=== PATIENT | female | born 1995 | race Caucasian/White ===

== ENCOUNTER 2019-05-11 16:35 | Emergency (ER) | payer SELFPAY ==
[2019-05-11 16:39] VITALS: BP 113/71; PULSE 95; RESP 20; TEMP 37.3; O2SAT 100
--- NOTE | 2019-05-11 16:56 | ED.URI ---
HPI - URI/Sore Throat General Chief Complaint: Upper Respiratory Infection Stated Complaint: SORE THROAT Time Seen by Provider: 05/11/19 16:56 Source: patient and RN notes reviewed Mode of arrival: ambulatory Limitations: no limitations History of Present Illness HPI Narrative: 23-year-old female presents with concern for 3-day history of sore throat, body aches, sinus congestion, drainage. Reports trying multiple [id number] medications with no relief. MD elicited complaint: sore throat Related Data Home Medications Medication Instructions Recorded Confirmed dextroamphetamine-amphetamine 20 mg PO BID 05/11/19 05/11/19 [Adderall XR] ibuprofen 200 mg PO Q6H PRN 05/11/19 05/11/19 pseudoephedrine HCl [Sudafed 12 mg PO 05/11/19 Hour] Allergies Allergy/AdvReac Type Severity Reaction Status Date / Time No Known Allergies Allergy Verified 05/11/19 16:47 Review of Systems Review of Systems: Narrative: CONSTITUTIONAL: Denies malaise, chills, sweats, or fever. EYES: Denies visual changes, redness, or discharge. ENT: Reports rhinorrhea, congestion, sinus pain, otalgia and sore throat. CARDIOVASCULAR: Denies chest pain, palpitations, or edema. RESPIRATORY: Reports cough. Denies dyspnea. GASTROINTESTINAL: Denies abdominal pain, nausea, vomiting, diarrhea SKIN: Denies rash or itching. MUSCULOSKELETAL: Denies myalgia. NEUROLOGIC: Denies headache. All systems reviewed & are unremarkable except as noted in HPI and below PMFSH Past Medical History Medical History (Updated 05/11/19 @ 17:11 by Enid Harrington NP) ADD (attention deficit disorder) HPV (human papilloma virus) infection Migraines Surgical History Surgical History (Updated 04/16/19 @ 21:38 by Antoni Ortega) H/O dilation and curettage History of removal of skin mole Social History Social History (Updated 04/16/19 @ 21:38 by Antoni Ortega) Smoking status: Never smoker Comments At time of signature, agree with nursing past medical, surgical, social and family history. There is no relevant family history pertinent to the presenting complaint Exam Narrative: Exam Narrative: GENERAL: Well-appearing, well-nourished, and in no acute distress. HEAD: Normocephalic, atraumatic. EYES: PERRLA, conjunctivae clear, and EOMI. ENT: Nares clear, turbinates edematous and erythematous, clear discharge. Mucous membranes moist. TM pearly jones with dull light reflex bilaterally; no tragal tenderness. Oropharynx erythematous without lesions. Tonsils not enlarged and without exudate, no drooling, no hoarseness, no trismus. NECK: Supple. No lymphadenopathy CHEST: Clear to auscultation, breath sounds equal. No wheezing, rhonchi, rales, or stridor. No respiratory distress, speaks in full sentences. HEART: Regular rate and rhythm. No murmur heard. Normal peripheral pulses. SKIN: Warm, dry, no rash. NEURO: Alert and oriented x3. PSYCH: Normal mood and affect Course Course Emergency Course: Patient is aware of diagnosis, understands and agrees to treatment plan. Anticipatory guidance given. Patient agrees to follow-up as directed and is aware of reasons to seek care at the emergency department. Portions of this record may have been created with voice recognition software Vital Signs Vital signs: Vital Signs Temperature 99.1 F 05/11/19 16:39 Pulse Rate 95 05/11/19 16:39 Respiratory Rate 20 05/11/19 16:39 Blood Pressure 113/71 05/11/19 16:39 Pulse Oximetry 100 05/11/19 16:39 Temperature 99.1 F 05/11/19 16:39 Pulse Rate 95 05/11/19 16:39 Respiratory Rate 20 05/11/19 16:39 Blood Pressure 113/71 05/11/19 16:39 Pulse Oximetry 100 05/11/19 16:39 Reviewed. MDM - URI/Sore Throat MDM Narrative Medical decision making narrative: Differential diagnosis considered: Strep pharyngitis, allergic rhinitis, upper respiratory tract infection, sinusitis, rhinosinusitis, nasopharyngitis. viral pharyngitis, otitis media, otitis externa,
== END 2019-05-11 17:17 | disposition home or self-care (01) ==
PROVIDERS: Emergency Provider Nurse Practitioner
DX: J01.90 Acute sinusitis, unspecified (principal); F90.0 Attention-deficit hyperactivity disorder, predominantly inattentive type
CPT/HCPCS: 87081; 87880; 99213; G0463

== ENCOUNTER 2020-11-15 13:19 | Emergency (ER) | payer BC, SELFPAY ==
--- NOTE | ~2020-11-15 | CT_ITS ---
EXAMINATION: CT abdomen pelvis wo con DATE: 11/15/2020 17:19 INDICATION: Left flank pain. TECHNIQUE: Computed tomography (CT) of the abdomen and pelvis was performed without intravenous contr ast. Automated exposure control and iterative reconstruction technique were employed. The dose-length product was 170.10 mGy-cm. COMPARISON: CT abdomen and pelvis 06/26/2008 FINDINGS: The visualized portions of the lung bases are clear without pneumonia or pleural effusion. The heart size is normal. No pericardial effusion. The liver, gallbladder, spleen, pancreas, adrenal glands, and kidneys are normal. No urolithiasis. There are no dilated loops of bowel. The appendix is normal. There are no pathologically enlarged lymph nodes. There is no free intraperitoneal fluid. Th e bones are unremarkable. IMPRESSION: 1. No etiology for the patient's symptoms. Reviewed, dictated and finalized at location A.
[2020-11-15 14:21] VITALS: BP 115/78; PULSE 94; RESP 16; TEMP 37.4; O2SAT 99
[2020-11-15 14:56] LABS: Add Urine Microscopic? YES; Appearance Urine Cloudy (Clear); Bacteria Urine Trace /hpf; Bilirubin Urine Negative (Negative); Blood Urine 1+ (Negative); Color Urine Yellow (Yellow); Glucose Urine UA Negative (Negative); Ketones Urine Negative (Negative); Leukocyte Esterase Ur Negative LEU/UL (Negative); Mucus Urine Rare /lpf; Nitrate Urine Negative (Negative); Protein Urine Negative (Negative); Specific Grav Ur 1.028 (1.001-1.035); Squamous Epithelial Cell Urine Occasional /hpf (Few); Urobilinogen Urine Negative mg/dL (<2.0)
--- NOTE | 2020-11-15 16:49 | ED.BACK ---
HPI - Back Pain/Injury General Chief Complaint: Back Pain/Injury Stated Complaint: back pain Time Seen by Provider: 11/15/20 16:28 Source: patient Mode of arrival: ambulatory Limitations: no limitations History of Present Illness HPI Narrative: This is a 25 year old female that presents to the ER for flank pain present over the last couple of months. Reports worsening over the last week. Pain radiates to the groin. It is almost constant. Sharp in nature. She took Ibuprofen this morning for pain. 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 Reports she was told that she has an ovarian cyst. Denies fever, nausea, vomiting, dysuria or hematuria. Related Data Home Medications Medication Instructions Recorded Confirmed dextroamphetamine-amphetamine 20 mg PO BID 05/11/19 05/11/19 [Adderall XR] ibuprofen 200 mg PO Q6H PRN 05/11/19 05/11/19 pseudoephedrine HCl [Sudafed 12 mg PO 05/11/19 Hour] Allergies Allergy/AdvReac Type Severity Reaction Status Date / Time No Known Allergies Allergy Verified 05/11/19 16:47 Review of Systems Review of Systems: CONSTITUTIONAL: Denies fever GASTROINTESTINAL: Reports abdominal pain. Denies nausea, vomiting GENITOURINARY: Denies dysuria or hematuria. MUSCULOSKELETAL: Reports back pain, joint pain, and myalgia. All systems reviewed & are unremarkable except as noted in HPI and below PMFSH Past Medical History Medical History (Updated 11/15/20 @ 19:19 by Joyce Christianson PA-C) ADD (attention deficit disorder) HPV (human papilloma virus) infection Migraines Surgical History Surgical History (Updated 04/16/19 @ 21:38 by Antoni Ortega) H/O dilation and curettage History of removal of skin mole Social History Social History (Updated 04/16/19 @ 21:38 by Antoni Ortega) Smoking status: Never smoker Gender identity (if verbalized by the patient): Female Exam Narrative: GENERAL: Well-appearing, well-nourished, and in no acute distress. HEAD: Normocephalic, atraumatic. EYES: EOMI. CHEST: Clear to auscultation. No respiratory distress. No wheezes rales or rhonchi HEART: Regular rate and rhythm. No murmur heard. Normal peripheral pulses. ABDOMEN: Soft, nondistended, normal active bowel sounds. Mild tenderness to palpation throughout the lower abdomen, without guarding. No CVA tenderness EXTREMITIES: Normal range of motion. No edema. SKIN: Warm, dry, no rash. NEURO: No focal deficits. Alert and oriented x3. PSYCH: Normal mood and affect Course Vital Signs Vital signs: Vital Signs Temperature 99.3 F 11/15/20 14:21 Pulse Rate 94 11/15/20 14:21 Respiratory Rate 16 11/15/20 14:21 Blood Pressure 115/78 11/15/20 14:21 Pulse Oximetry 99 11/15/20 14:21 Temperature 99.3 F 11/15/20 14:21 Pulse Rate 80 11/15/20 17:15 Respiratory Rate 18 11/15/20 17:15 Blood Pressure 130/87 11/15/20 17:15 Pulse Oximetry 100 11/15/20 17:15 MDM - Back Pain/Injury MDM Narrative Medical decision making narrative: Patient presents to the emergency department for flank pain and pelvic pain present over the last couple of months. Reports worsening over the last week. She is afebrile and nontoxic-appearing. Her vitals are stable. CBC and metabolic panel without concerning findings. UA without evidence of infection. Bedside test is negative. CT scan of the abdomen and pelvis is without acute findings. She reports relief with IV Tylenol and Toradol. Patient did report possible history of ovarian cysts. There are no cysts noted on CT scan of the abdomen pelvis. I do not currently have concern for torsion in this patient without a cyst noted on CT scan. Patient does appear to be comfortable as well. Spoke with Dr. Medina about patient and work-up. Patient is to follow-up in clinic with Dr. Askew. She is stable and felt appropriate for further outpatient evaluation. She was given warnings to return to the ER L
[2020-11-15 17:08] LABS: Basophils Percent Auto 0.7 % (0.2-1.2); Eosinophils Absolute Auto 0.1 K/mm3 (0-0.3); Hematocrit 36.4 % (37.0-47.0); Immature Granulocyte Absolute 0.01 K/mm3 (0.00-0.031); Immature Granulocyte Percent A 0.2 % (0-0.5); Lymphocytes Absolute Auto 1.76 K/mm3 (0.9-3.2); Lymphocytes Percent Auto 29.7 % (18.3-44.2); Mean Corpuscular Hemoglobin 30.8 pg (26-34); Mean Corpuscular Volume 93.6 fl (80-100); Mean Platelet Volume 10.4 fl (7.4-10.4); Monocytes Absolute Auto 0.5 K/mm3 (0.1-0.6); Monocytes Percent Auto 8.4 % (2.6-8.5); Neutrophils Absolute Auto 3.5 K/mm3 (1.3-6.7); Platelet Count Result 184 k/mm3 (150-375); Red Blood Count 3.89 M/mm3 (4.2-5.4); Red Cell Distribution Width 12.5 % (11.5-14.5); White Blood Count 5.9 K/mm3 (4.5-10.0)
[2020-11-15 17:15] VITALS: BP 130/87; PULSE 80; RESP 18; O2SAT 100
[2020-11-15 17:21] LABS: Alanine Aminotransferase 13 U/L (4-35); Albumin Level 4.4 g/dL (3.5-5.1); Alkaline Phosphatase 37 U/L (38-126); Anion Gap 5 mmol/L (8-16); Aspartate Amino Transferase 23 U/L (14-36); Bilirubin,Total 0.3 mg/dL (0.2-1.3); Blood Urea Nitrogen 17 mg/dL (7-17); Calcium 9.6 mg/dL (8.4-10.2); Carbon Dioxide 29 mmol/L (22-30); Chloride 101 mmol/L (98-107); Estimated CRCL calculation 103 ml/min; Estimated Glomerular Filt Rate > 60; Glucose 91 mg/dL (65-110); Potassium 3.7 mmol/L (3.4-5.0); Sodium 135 mmol/L (137-145)
[2020-11-15] MEDS: KETOROLAC 15 MG/ML VIAL (*BKC) IV PUSH (18:15)
[2020-11-15 19:20] VITALS: BP 107/73; PULSE 67; RESP 16; O2SAT 100
== END 2020-11-15 19:20 | disposition home or self-care (01) ==
PROVIDERS: Physician Assistant; Emergency Provider Emergency Medicine
DX: M54.5 Low back pain (principal); R10.2 Pelvic and perineal pain
CPT/HCPCS: 36415; 74176; 80053; 81001; 81025; 85025; 96374; 96375; 99284; J0131; J1885

== ENCOUNTER 2021-02-17 14:11 | Emergency (ER) | payer BC, SELFPAY ==
[2021-02-17 14:20] VITALS: BP 108/74; PULSE 104; RESP 16; TEMP 36.8; O2SAT 100
--- NOTE | 2021-02-17 14:40 | ED.URI ---
HPI - URI/Sore Throat General Chief Complaint: Upper Respiratory Infection Stated Complaint: URI SYMPTOMS/LOSS OF TASTE AND SMELL Source: patient and RN notes reviewed Mode of arrival: ambulatory History of Present Illness HPI Narrative: This is a 25-year-old female that presented to urgent care with complaints of along with a headache, fatigue runny nose with greenish mucus, body aches, temperature of 100 for approximately 1 week. According to patient she did not take anything at home to relieve her symptoms. Patient did take a at home rapid Covid test which was negative. Will order PCR. Denies any contact with Covid positive people the patient denies SOB, CP, palpitation, extremity numbness, lightheadedness, dizziness, constipation, diarrhea, chills, or fever. Related Data Home Medications Medication Instructions Recorded Confirmed dextroamphetamine-amphetamine 20 mg PO BID 05/11/19 05/11/19 [Adderall XR] Allergies Allergy/AdvReac Type Severity Reaction Status Date / Time No Known Allergies Allergy Verified 05/11/19 16:47 Review of Systems Review of Systems: A 14 organ system Review of Systems was performed and pertinent positives included in the HPI, otherwise remaining ROS is negative. [facility] Past Medical History Medical History ADD (attention deficit disorder) HPV (human papilloma virus) infection Migraines Surgical History Surgical History H/O dilation and curettage History of removal of skin mole Family History Family History (Updated 02/17/21 @ 14:45 by ISIS Nath) Other Family history non-contributory Social History Social History Smoking status: Never smoker Gender identity (if verbalized by the patient): Female Exam Narrative: GENERAL: This is a well-nourished, well-developed patient, in no apparent distress. HEAD: normocephalic, atraumatic. EYES: PERRL. Sclera clear/white. Vision is grossly intact. EARS: External ears normal, auditory canals clear and without drainage, TMs normal without perforation. Hearing grossly intact. NOSE: External nose normal with no obvious nasal discharge, nares without redness, no rhinorrhea. THROAT: Mucous membranes moist, posterior pharynx clear. NECK: Neck supple, non-tender without lymphadenopathy, masses or thyromegaly. CARDIOVASCULAR: Regular rate and rhythm without murmurs, gallops, or rubs. RESPIRATORY: Clear to auscultation. Breath sounds equal bilaterally. No wheezes, rales, or rhonchi. GASTROINTESTINAL: Abdomen soft, non-tender, nondistended. Bowel sounds are active. No hepato-splenomegaly, or palpable masses. No guarding. SKIN: warm, intact with no suspicious lesions or rash, good texture and turgor. NEURO: awake, alert, and oriented to person, place and time. There were no obvious focal neurologic abnormalities. Steady gait EXTREMITIES: Normal range of motion. No edema. No calf tenderness. Negative Homans sign bilaterally. BACK: Nontender without deformity or crepitance. No flank tenderness. Course Course Emergency Course: Patient instructed to use [id number] Flonase prescribed Augmentin for bronchitis instructed to complete a Covid PCR also use [id number] medication for to relieve symptoms such as Claritin and Benadryl MMM Flonase Vital Signs Vital signs: Vital Signs Temperature 98.2 F 02/17/21 14:20 Pulse Rate 104 H 02/17/21 14:20 Respiratory Rate 16 02/17/21 14:20 Blood Pressure 108/74 02/17/21 14:20 Pulse Oximetry 100 02/17/21 14:20 Temperature 98.2 F 02/17/21 14:20 Pulse Rate 104 H 02/17/21 14:20 Respiratory Rate 16 02/17/21 14:20 Blood Pressure 108/74 02/17/21 14:20 Pulse Oximetry 100 02/17/21 14:20 MDM - URI/Sore Throat Differential Diagnosis Differential diagnosis: Likely upper respiratory infec
== END 2021-02-17 14:43 | disposition home or self-care (01) ==
PROVIDERS: Emergency Provider Nurse Practitioner; PCP Family Medicine
DX: J40 Bronchitis, not specified as acute or chronic (principal); Z20.822 Contact with and (suspected) exposure to COVID-19; F90.9 Attention-deficit hyperactivity disorder, unspecified type
CPT/HCPCS: 99213; G0463

== ENCOUNTER 2022-04-18 11:43 | Emergency (ER) | payer OTHER, BC, SELFPAY ==
--- NOTE | ~2022-04-18 | XR_ITS ---
EXAMINATION: XR foot LT min 3V DATE: 04/18/2022 12:07 INDICATION: Wheezing at the left second and third metatarsals post blunt trauma TECHNIQUE: Dorsoplantar, two oblique and lateral views of the left foot were obtained. COMPARISON: None. FINDINGS: Alignment is normal. No fracture. Joint spaces are normal. Soft tissues are unremarkable. IMPRESSION: 1. Negative left foot radiographs. Reviewed, dictated and finalized at location A. [facility]
[2022-04-18 11:52] VITALS: BP 104/83; PULSE 83; RESP 16; TEMP 37.2; O2SAT 100
[2022-04-18 11:58] VITALS: BP 104/83; PULSE 83; RESP 16; TEMP 37.2; O2SAT 100
--- NOTE | 2022-04-18 12:16 | ED.LOWEXIN ---
HPI - Extremity Injury (Lower) General Chief Complaint: Extremity Injury, Lower Stated Complaint: WC Time Seen by Provider: 04/18/22 12:24 Source: patient and RN notes reviewed Mode of arrival: ambulatory Limitations: no limitations History of Present Illness HPI Narrative: 26-year-old female presents concern for left foot pain. Reports yesterday she had a grooming table with a dog on it fall onto her foot. Reports bruising and pain. She denies any intervention. MD complaint: foot injury Related Data Home Medications Medication Instructions Recorded Confirmed dextroamphetamine-amphetamine ER See Rx Instructions .Route .COMPLEX 05/11/19 04/18/22 20 mg 24hr capsule,extend release (Adderall XR) dextroamphetamine-amphetamine 20 See Rx Instructions .Route .COMPLEX 04/18/22 04/18/22 mg tablet Allergies Allergy/AdvReac Type Severity Reaction Status Date / Time No Known Allergies Allergy Verified 04/18/22 11:55 Review of Systems Review of Systems: CONSTITUTIONAL: Denies malaise, chills, sweats, or fever. SKIN: Denies rash or itching, open skin, laceration, abrasion, redness, warmth, swelling. MUSCULOSKELETAL: Reports left foot pain and bruising NEUROLOGIC: Denies numbness, weakness All systems reviewed & are unremarkable except as noted in HPI and below PMFSH Past Medical History Medical History ADD (attention deficit disorder) HPV (human papilloma virus) infection Migraines Surgical History Surgical History H/O dilation and curettage History of removal of skin mole Family History Family History (Updated 02/17/21 @ 14:45 by ISIS Nath) Other Family history non-contributory Social History Social History Smoking status: Never smoker Gender identity (if verbalized by the patient): Female Comments At time of signature, agree with nursing past medical, surgical, social and family history. There is no relevant family history pertinent to the presenting complaint Exam Narrative: GENERAL: Well-appearing, well-nourished, and in no acute distress. HEAD: Normocephalic, atraumatic. EYES: PERRLA, conjunctivae clear NECK: Supple. CHEST: Speaks in full sentences. No respiratory distress. HEART: Regular rate and rhythm. Normal and equal peripheral pulses. EXTREMITIES: Left foot, digits have normal strength and sensation, normal range of motion. No edema mild dorsal ecchymosis. 5/5 strength with ankle and digit flexion and extension. Normal sensation with sensitivity to light touch and pain. No point tenderness. No open wounds, no skin tenting, no devitalized tissue or atrophy, no trophic changes, no obvious deformity, alignment normal, nearby joints and structures intact. Distal pulses palpable and equal bilaterally, skin warm, dry, pink. Capillary refill less than 3 seconds. SKIN: Warm, dry, no rash. NEURO: Alert and oriented x3. PSYCH: Normal mood and affect Course Course Emergency Course: Patient is aware of diagnosis, understands and agrees to treatment plan. Anticipatory guidance given. Patient agrees to follow-up as directed and is aware of reasons to seek care at the emergency department. Portions of this record may have been created with voice recognition software Level of Care: Express Care Visit Vital Signs Vital signs: Vital Signs Temperature 99.0 F 04/18/22 11:52 Pulse Rate 83 04/18/22 11:52 Respiratory Rate 16 04/18/22 11:52 Blood Pressure 104/83 04/18/22 11:52 Pulse Oximetry 100 04/18/22 11:52 Oxygen Delivery Room Air 04/18/22 11:52 Temperature 99.0 F 04/18/22 11:58 Pulse Rate 83 04/18/22 11:58 Respiratory Rate 16 04/18/22 11:58 Blood Pressure 104/83 04/18/22 11:58 Pulse Oximetry 100 04/18/22 11:58 Oxygen Delivery Room Air 04/18/22 11:58 Reviewed.
== END 2022-04-18 12:24 | disposition home or self-care (01) ==
PROVIDERS: Emergency Provider Nurse Practitioner; PCP Family Medicine
DX: S90.32XA Contusion of left foot, initial encounter (principal); W20.8XXA Other cause of strike by thrown, projected or falling object, initial encounter; F98.8 Other specified behavioral and emotional disorders with onset usually occurring in childhood and adolescence
CPT/HCPCS: 73630; 99213; G0463

== ENCOUNTER 2022-09-26 12:49 | Emergency (ER) | payer OTHER, SELFPAY ==
--- NOTE | ~2022-09-26 | XR_ITS ---
Left ankle Technique: AP, oblique, and lateral views were obtained. Clinical History: Pain Findings: No acute fracture or dislocation is seen. Osseous alignment is anatomic. Ankle mortise and other visualized joint spaces are preserved. Soft tissues are otherwise unremarkable. Impression: Unremarkable left ankle. Reviewed, dictated and finalized at location . Impression: Unremarkable left ankle.
--- NOTE | 2022-09-26 12:54 | ED.FALL ---
HPI - Fall General Chief Complaint: Extremity Injury, Lower Stated Complaint: Fall Time Seen by Provider: 09/26/22 12:54 Source: patient Mode of arrival: ambulatory Limitations: no limitations History of Present Illness HPI Narrative: Mahnaz is a 27-year-old female patient presenting to the clinic today with complaints of left ankle injury after missing a step yesterday in the rain. Reports pain to the lateral ankle. Does have some swelling over this area. Is able to bear weight but is painful. Related Data Home Medications Medication Instructions Recorded Confirmed dextroamphetamine-amphetamine ER PO 09/26/22 09/26/22 20 mg 24hr capsule,extend release (Adderall XR) Allergies Allergy/AdvReac Type Severity Reaction Status Date / Time No Known Allergies Allergy Verified 09/26/22 12:51 Review of Systems Review of Systems: Pertinent positives per HPI. Patient denies any fever, chills, rash, headache, visual changes, dizziness, cough, runny nose, sore throat, shortness of breath, chest pain, palpitations, nausea, vomiting, diarrhea, constipation, abdominal pain, or any urinary issues. 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 There is no relevant family history pertinent to the patient complaint. Exam Narrative: General: Well-developed, well nourished, in no apparent distress Head: Normocephalic, atraumatic. Cardio: Regular rate and rhythm, s1 and s2 normal, no murmur appreciated. Resp: Clear to auscultation bilaterally, no rhonchi, rales, wheezing or rubs. Musculoskeletal: No deformity, swelling noted over the left lateral malleolus, tender to palpation over the left lateral malleolus, mild discomfort with plantar flexion against resistance, grossly normal range of motion, muscle strength strong and equal, peripheral pulse strong, no cyanosis, normal gait and station Course Course Emergency Course: Portions of this record may have been created with voice recognition software. Level of Care: Express Care Visit Vital Signs Vital signs: Vital signs reviewed MDM - Fall MDM Narrative Medical decision making narrative: At the time of visit patient is resting comfortably on the exam table. X-ray is negative for any sign of fracture or malalignment. Discussed rice treatment and supportive measures and she voiced understanding discharge instructions and agrees to treatment plan. Differential Diagnosis Differential diagnosis: Likely other (Left ankle sprain, left ankle fracture) Imaging Data Radiologist's impression: [facility] [address] [place] [address] XRay Report Signed Patient: Mahnaz Dowell : 1995 MR#: [id number] Age/Sex: 27 / F Acct:[id number] Loc: [facility]? ? ADM Date: 09/26/22Attending Dr: Ordering Physician: Karthikeyan
[2022-09-26 13:03] VITALS: BP 110/76; PULSE 102; RESP 16; TEMP 36.7; O2SAT 99
== END 2022-09-26 13:20 | disposition home or self-care (01) ==
PROVIDERS: Emergency Provider Nurse Practitioner Family; PCP Family Medicine
DX: S93.402A Sprain of unspecified ligament of left ankle, initial encounter (principal); W10.9XXA Fall (on) (from) unspecified stairs and steps, initial encounter; F98.8 Other specified behavioral and emotional disorders with onset usually occurring in childhood and adolescence
CPT/HCPCS: 73610; 99213; G0463

== ENCOUNTER 2022-12-07 10:43 | Emergency (ER) | payer SELFPAY ==
--- NOTE | 2022-12-07 10:50 | ED.FEMALEGU ---
HPI - Female Genitourinary General Chief complaint: Urogenital-Female Stated complaint: UTI SYMPTOMS/5 WKS Time Seen by Provider: 12/07/22 10:50 Source: patient and RN notes reviewed History of Present Illness HPI Narrative: Patient is a 27-year-old female presents to urgent care with complaints of UTI symptoms of urinary frequency, urgency and flank pain that started approximately 1 week ago. Patient states that she is approximately 5 weeks and this is not her 1st . Patient denies any fever, nausea or vomiting. Denies any abdominal discomfort. Patient has increase water intake and cranberry juice but otherwise no medications over counter. Patient was seen in the emergency room in August for a kidney infection and given both IV antibiotics as well as discharged on oral medication. Patient denies any blood in the urine. No other acute complaints. No acute distress noted. Patient aware of the plan of care. Some parts of this dictation were generated by voice recognition software and may contain typographical and/or grammatical inaccuracies. Related Data Home Medications Medication Instructions Recorded Confirmed dextroamphetamine-amphetamine ER 20 mg PO DAILY 09/26/22 12/07/22 20 mg 24hr capsule,extend release (Adderall XR) Allergies Allergy/AdvReac Type Severity Reaction Status Date / Time No Known Allergies Allergy Verified 12/07/22 10:53 Review of Systems Review of Systems: CONSTITUTIONAL: Denies fever, chills, or sweats. EYES: Denies visual changes, redness, or discharge. ENT: Denies rhinorrhea, congestion, sore throat, or otalgia. CARDIOVASCULAR: Denies chest pain, palpitations, or edema. RESPIRATORY: Denies cough or dyspnea. GASTROINTESTINAL: Denies abdominal pain, nausea, vomiting, or diarrhea. GENITOURINARY: Reports of urinary frequency, urgency and right flank pain SKIN: Denies rash or itching. MUSCULOSKELETAL: Denies back pain, joint pain, or myalgia. NEUROLOGIC: Denies headache, numbness, or weakness. All other systems reviewed are negative, except as documented in HPI. 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 There is no relevant family history pertinent to the patient complaint. Exam Narrative: GENERAL: This is a well-nourished, well-developed patient, in no apparent distress. HEAD: normocephalic, atraumatic. EYES: PERRL. Sclera clear/white. Vision is grossly intact. EARS: External ears normal NOSE: External nose normal with no obvious nasal discharge, nares without redness, no rhinorrhea. THROAT: Mucous membranes moist NECK: Neck supple GASTROINTESTINAL: Abdomen soft, non-tender, nondistended. SKIN: warm, intact with no suspicious lesions or rash, good texture and turgor. NEURO: awake, alert, and oriented to person, place and time. There were no obvious focal neurologic abnormalitie
[2022-12-07 10:54] VITALS: BP 120/99; PULSE 96; RESP 16; TEMP 37; O2SAT 100
[2022-12-07 10:56] VITALS: BP 120/99; PULSE 96; RESP 16; TEMP 37; O2SAT 100
== END 2022-12-07 11:12 | disposition home or self-care (01) ==
PROVIDERS: Emergency Provider Nurse Practitioner Family; PCP Family Medicine
DX: O23.41 Unspecified infection of urinary tract in pregnancy, first trimester (principal); N39.0 Urinary tract infection, site not specified; Z3A.01 Less than 8 weeks gestation of pregnancy; Z37.9 Outcome of delivery, unspecified; O99.341 Other mental disorders complicating pregnancy, first trimester; F98.8 Other specified behavioral and emotional disorders with onset usually occurring in childhood and adolescence
CPT/HCPCS: 81003; 87077; 87086; 87088; 87186; 99213; G0463